=== PATIENT | female | born 1960 | race Caucasian/White ===

== ENCOUNTER 2019-04-15 18:32 | Inpatient (IN) | payer OTHER ==
[~2019-04-15] VITALS: Ht 152.4 cm; Wt 72.6 kg
[2019-04-15 18:41] VITALS: BP 139/76
--- NOTE | 2019-04-15 20:25 | NUR ---
PT WHEELCHAIRED TO BED #11
--- NOTE | 2019-04-15 20:30 | NUR ---
PT CAME TO ER S/P MECHANICAL FALL TODAY. PT WAS DOING LAUNDRY AND FELL ON LEFT KNEE AND LEFT ELBOW. PT DENIES HITTING HEAD. NO LOC. LEFT KNEE IS SWOLLEN WITH MILD ERYTHEMA. PAIN LEVEL 10/10, ACHING. NKA. MED HX: DM, HIGH CHOLESTEROL. SAFETY MEASURES IN PLACE. WAITING FOR ERMD TO EVALUATE PT.
--- NOTE | 2019-04-15 21:17 | NUR ---
XRAY AT BEDSIDE
[2019-04-15] MEDS ORDERED: KETOROLAC 30 MG/ML VIAL IM ONE (21:40)
--- NOTE | 2019-04-15 22:00 | NUR ---
PT RESTING IN BED COMFORTABLY WITH GRANDDAUGHTER AT BEDSIDE
--- NOTE | 2019-04-15 22:30 | NUR ---
PT STATED PAIN LEVEL DECREASED TO PAIN 5/10
[2019-04-15] MEDS ORDERED: ACETAMINOPHEN 325 MG TAB PO PRN (23:20)
[2019-04-15] MEDS ORDERED: ONDANSETRON 4 MG/2 ML VIAL IVP PRN (23:20)
[2019-04-15] MEDS ORDERED: HYDROcodone/APAP 7.5/325 MG 1 TAB PO PRN (23:20)
--- NOTE | 2019-04-15 23:20 | NUR ---
PT RESTING IN BED. VSS. WILL CONTINUE TO MONITOR.
[2019-04-15] MEDS ORDERED: MORPHINE SULFATE 4 MG/ML SYR IVP PRN (23:25)
--- NOTE | 2019-04-16 | NUR ---
RECEIVED FROM ER PER ZULLY AWAKE AND ALERT. NO SOB. DENIES PAIN AT THIS TIME. CALL LIGHT USE EXPLAINED . CARES FOR THE NIGHT DISCUSSED WITH HER AND FAMILY MEMBERS /DAUGHTER WHO SPEAKS YEMENI WELL. DX. OF COMMINUTED PATELLA FRACTURE. IVF SITE TO [facility] #20 INTACT AND WITH GOOD BLOOD RETURN. SKIN INTACT.
[2019-04-16 00:02] LABS: BASOPHILS % (AUTO) 0.3 % (0.0-2.0); EOSINOPHILS # (AUTO) 0.1 K/uL (0-0.4); EOSINOPHILS % (AUTO) 0.4 % (0.0-4.0); HEMATOCRIT 42.9 % (36-48); HEMOGLOBIN 13.9 g/dL (12.0-16.0); LYMPHOCYTES # (AUTO) 2.4 K/uL (2.5-16.5); LYMPHOCYTES % (AUTO) 16.8 % (20.5-51.1); MEAN CORPUSCULAR HEMOGLOBIN 30 pg (27-31); MEAN CORPUSCULAR HGB CONC 32 g/dL (33-37); MEAN CORPUSCULAR VOLUME 92.8 fL (80-94); MONOCYTES # (AUTO) 0.7 K/uL (0.8-1.0); MONOCYTES % (AUTO) 5.3 % (1.7-9.3); NEUTROPHILS # (AUTO) 10.8 K/uL (1.8-7.7); NEUTROPHILS % (AUTO) 77.2 % (42.2-75.2); PLATELET COUNT (AUTO) 275 K/uL (140-450); RED BLOOD CELL COUNT(AUTO) 4.62 MIL/uL (4.20-5.40); RED CELL DISTRIBUTION WIDTH 13.5 % (11.6-13.7)
--- NOTE | 2019-04-16 00:02 | NUR ---
adPatient will be admitted to care of Dr. Uribe. Admited to [facility]. Will go to [id number]. Belongings list completed. Report to LUCY Arthur.
--- NOTE | 2019-04-16 00:02 | NUR ---
Transfer of care and report given to LUCY Arthur
[2019-04-16 00:11] LABS: ALBUMIN 3.7 g/dL (3.4-5.0); ANION GAP 13.7 (8-16); CREATININE 0.5 mg/dL (0.6-1.3); POTASSIUM 3.7 mmol/L (3.5-5.1); TOTAL BILIRUBIN 0.4 mg/dL (0.0-1.0)
[2019-04-16 00:20] LABS: FREE T4 (FREE THYROXINE) 1.13 ng/dL (0.76-1.46); MAGNESIUM 1.8 mg/dL (1.8-2.4); PHOSPHORUS 4.3 mg/dL (2.5-4.9); THYROID STIMULATING HORMONE 1.27 uIU/mL (0.34-3.74)
[2019-04-16] MEDS ORDERED: DEXTROSE 50% 50 ML SYR IVP PRN (00:20)
[2019-04-16] MEDS ORDERED: INSULIN LISPRO SLIDING SCALE 100 UNITS/ML VIAL SUBQ PRN (00:20)
[2019-04-16 00:25] VITALS: BP 154/87
[2019-04-16 00:40] LABS: PROTHROMBIN TIME 9.9 secs (10.8-13.4)
--- NOTE | 2019-04-16 01:30 | NUR ---
PT. FAMILY MEMBERS LEFT FOR HOME AND PT. REQUESTED FOR DOLOR MEDICATION FOR PAIN OF 6. MEDICATED WITH HYDROCODONE ORDERED BY MD. NO FURTHER COMPLAINT.
--- NOTE | 2019-04-16 04:00 | NUR ---
SLEEPING. NO RESTLESSNESS.
[2019-04-16] MEDS: DEXT 5% / NACL 0.9% 1,000 ML IV SCH ×2 (04:45→14:09)
[2019-04-16] MEDS: BLOOD GLUCOSE MONITORING 1 DEV DEV FS SCH ×4 (05:19→17:54)
[2019-04-16 07:08] LABS: ANION GAP 13.1 (8-16); CARBON DIOXIDE 26.7 mmol/L (21-32); CREATININE 0.7 mg/dL (0.6-1.3); POTASSIUM 3.8 mmol/L (3.5-5.1)
[2019-04-16 07:17] LABS: CHOL/HDL RATIO 2.5 (1-4.5)
--- NOTE | 2019-04-16 07:18 | NUR ---
SLEPT WELL THIS SHIFT. ABLE TO USE CALL LIGHT FOR HELP. ENDORSED TO THE NEXT RN FOR CONTINUITY OF CARE AWAKE AND ALERT. VERBALIZING WELL. PT. REFUSED XRAY TO LEFT ELBOW STATING "NO DOLOR" PER SAVANA OF XRAY DEPT. ENDORSED TO AM RN TO FOLLOW UP ON THIS.
--- NOTE | 2019-04-16 07:20 | NUR ---
RECEIVED REPORT FROM PROTOTYPER NURSE. PT AAOX4, PT IS RESTING IN BED, NO C/O PAIN AT THIS TIME. IV ON RT AC 20 GA RUNNING IVF PER ORDER. RESPIRATIONS EVEN AND UNLABORED ON RA. ABD SOFT, ACTIVE BS. PT DX LT COMMINUTED PATELLA FRACTURE, NOTED IMMOBILIZER IN PLACE. PER PROTOTYPER NURSE, PT REFUSED CXR TO LT ELBOW, WILL REPORT TO PHYSICIAN. PT IS ON FALL RISK PRECAUTIONS, SAFETY MEASURES IN PLACE, CALL LIGHT WITHIN REACH. REVIEWED POC, PT VERBALIZED UNDERSTANDING.
[2019-04-16 07:31] LABS: BASOPHILS % (AUTO) 0.3 % (0.0-2.0); EOSINOPHILS # (AUTO) 0.1 K/uL (0-0.4); EOSINOPHILS % (AUTO) 0.8 % (0.0-4.0); HEMATOCRIT 38.3 % (36-48); HEMOGLOBIN 12.4 g/dL (12.0-16.0); LYMPHOCYTES # (AUTO) 2.6 K/uL (2.5-16.5); LYMPHOCYTES % (AUTO) 18.4 % (20.5-51.1); MEAN CORPUSCULAR HEMOGLOBIN 30 pg (27-31); MEAN CORPUSCULAR HGB CONC 33 g/dL (33-37); MEAN CORPUSCULAR VOLUME 93.7 fL (80-94); MONOCYTES % (AUTO) 6.9 % (1.7-9.3); NEUTROPHILS # (AUTO) 10.3 K/uL (1.8-7.7); NEUTROPHILS % (AUTO) 73.6 % (42.2-75.2); PLATELET COUNT (AUTO) 256 K/uL (140-450); RED BLOOD CELL COUNT(AUTO) 4.08 MIL/uL (4.20-5.40); RED CELL DISTRIBUTION WIDTH 13.7 % (11.6-13.7)
[2019-04-16 08:00] VITALS: BP 134/69
--- NOTE | 2019-04-16 08:29 | NUR ---
PATIENT HAS BEEN SCREENED AND CATEGORIZED MODERATE NUTRITION RISK. PATIENT WILL BE SEEN WITHIN 3-5 DAYS OF ADMISSION. 04/18/19 04/20/[address]
[2019-04-16] MEDS ORDERED: DOCUSATE SODIUM 100 MG GELCAP PO SCH (09:00)
--- NOTE | 2019-04-16 09:43 | NUR ---
PT GIVEN COLACE PER ORDER. PT HAS NO C/O PAIN AT THIS TIME.
--- NOTE | 2019-04-16 11:06 | NUR ---
CONTACTED PATIENT'S PCP NIYA GUDINO OFFICE AT [phone] REGARDING POST DISCHARGE APPOINTMENT. SCHEDULED FOR 04/22/19 AT 1130 AM, OFFICE ADDRESS IS [address] [place] [address] [address], [place] [address]. COPY OF APPOINMENT PROVIDED TO THE PATIENT.
--- NOTE | 2019-04-16 11:50 | NUR ---
PT'S FAMILY MEMBERS AT BEDSIDE. PT HAS NO SIGNS OF DISTRESS AT THIS TIME.
--- NOTE | 2019-04-16 15:08 | NUR ---
PT ON LEFT LATERAL SIDE, SLEEPING IN BED, RESPIRATIONS EVEN AND UNLABORED ON RA.
[2019-04-16] MEDS ORDERED: HYDR-5122 PO (15:56)
[2019-04-16 16:00] VITALS: BP 135/62
--- NOTE | 2019-04-16 16:00 | NUR ---
PER DR. SHEARER, THEY WERE ABLE TO SEND IMAGES TO DR. ISAAC BUT DR ISAAC [place] AND [place] UNABLE TO SEE PT, DR. ISAAC'S RECOMMENDATION IS TO PLACE KNEE IMMOBILIZER ON THE AFFECTED LEG, PHYSICAL THERAPY, NO SURGERY AT THIS TIME AND TO FOLLOW UP WITH ORTHO OUT PT. DR. BECKWITH NOTIFIED.
--- NOTE | 2019-04-16 16:00 | NUR ---
PT AAOX4. VSS STABLE. NO C/O PAIN AT THIS TIME.
--- NOTE | 2019-04-16 16:45 | NUR ---
CONTACTED [facility] AT [phone] REGARDING HOME HEALTH ORDER FOR PT AND HOME SAFETY, ABLE TO SPEAK TO ELVIS. SHE TRANSFERRED ME TO IN PATIENT AUTH AND SPOKE TO SANDY, SHE STATED THEY ARE NOT DELEGATED AND TO CALL [facility]. CONTACTED PATRICIA OF [facility] AT [phone], HE STATED [facility] IS THE ONE DELEGATED. PROVIDED HIM OF THE NAME OF THE PERSON THAT I SPOKE TO AT [facility]. ANH STATED HE WILL FOLLOW UP WITH THEM. CALLED [facility] AGAIN, PER VOICE MESSAGE THEY ARE CLOSED AT THIS TIME. WILL FOLLOW UP. PRIMARY RN JULIANNA MADE AWARE.
--- NOTE | 2019-04-16 19:25 | NUR ---
PT HAS BEEN DISCHARGED. ALL PAPERWORK SIGNED, ALL QUESTIONS ANSWERED. ALL BELONGINGS AND PRESCRIPTIONS IN PT POSSESSION. IV DISCONTINUED WITH CANNULA INTACT. WRISTBANDS REMOVED. PT TRANSFERRED OUT OF UNIT VIA PERSONAL WHEELCHAIR. FAMILY AT SIDE. PT IN STABLE CONDITION.
--- NOTE | 2019-04-17 08:32 | NUR ---
CONTACTED [facility], ABLE TO SPEAK TO ELVIS. I INFORMED HER THAT PER PATRICIA OF [facility] THEY ARE THE ONE DELEGATED FOR HOME HEALTH AUTHORIZATION. SHE STATED SHE WILL FAX ME OVER FORMS TO FILLED OUT. PER ELVIS FOR ROUTINE NEEDS PROCESSING WILL TAKE 5 BUSINESS DAYS AND FOR URGENT 72 BUSINESS HOURS. I ALSO INFORMED HER THAT THE PATIENT WAS DC YESTERDAY. SHE ALSO PROVIDED ME OF THE FAX NUMBER TO SEND ORDER. CONTACTED [facility] REGARDING THIS. HE TOOK THE NAME OF THE PERSON I SPOKE WITH AND STATED THAT HE WILL FOLLOW UP WITH THEM. ORDER FAXED TO THE PROVIDED NUMBER, STATING URGENT, PATIENT WAS DC'D YESTERDAY. WILL FOLLOW UP.
--- NOTE | 2019-04-17 13:55 | NUR ---
CONTACTED [facility] AGAIN, SPOKE TO ELVIS. SHE STATED TO RE FAX CLINICALS AND REQUEST. CONFIRMED FAX NUMBER [phone]. CLINICALS AND ORDER SENT
--- NOTE | 2019-04-17 14:44 | NUR ---
CONTACTED PATRICIA OF [facility] AND UPDATED HIM ON THE HOME HEALTH STATUS. HE STATED HE WILL CONTACT [facility] AND WILL UPDATE ME
--- NOTE | 2019-04-17 15:55 | NUR ---
RECEIVED A CALL FROM MAGNOLIA DIAZ OF [facility], HE SAID JUST GO AHEAD AND FAX CLINICALS OVER TO HOME HEALTH. I ASKED HIM IF THEY ARE CONTRACTED WITH [facility], HE STATED THEY ARE AND HAS A GOOD RELATIONSHIP WITH THEM. HE ALSO STATED THAT [facility] CAN CALL HIM DIRECTLY FOR AUTHORIZATION. CONTACTED [facility], SHE SAID TO FAX REFERRAL TO [phone]. SHE STATED SHE WILL CONTACT MAGNOLIA DIAZ OF [facility]. SHE ALSO STATED THAT SHE WILL CONTACT THE FAMILY WELL AND WILL UPDATE ME. CLINICALS FAXED TO THE PROVIDED NUMBER. Addendum: 04/17/19 at 1612 by Nati Bosch CM CONTACTED PATRICIA [facility], NO ANSWER. LEFT MESSAGE Addendum: 04/17/19 at 1614 by Nati Bosch CM CONTACT NUMBER FOR MAGNOLIA DIAZ OF [facility] IS [phone]
--- NOTE | 2019-04-17 16:06 | NUR ---
RECEIVED A CALL FROM JYOTI TECH ED TEACHER OF [facility], INFORMED HER THAT MAGNOLIA DIAZ CONTACTED ME ALREADY AND I AM IN CONTACT WITH [facility].
--- NOTE | 2019-04-18 08:20 | NUR ---
RECEIVED A VOICE MESSAGE FROM EVERETT OF [facility] STATING THAT SHE IS STILL WAITING FOR AUTHORIZATION FROM [facility]. CONTACTED [facility] AT [phone] TO FOLLOW UP HERMAN, ABLE TO SPEAK TO TIFFANI (AFTER HOURS REP). HE STATED OFFICE IS NOT OPEN UNTIL 829. WILL FOLLOW UP.
--- NOTE | 2019-04-18 09:20 | NUR ---
RECEIVED A CALL FROM [facility], SHE STATED SHE RECEIVED THE AUTH FROM [facility] AND HER NURSE WILL BE SEEING THE PATIENT TODAY.
== END 2019-04-16 19:30 | disposition home or self-care (01) | DRG 342 ==
LOC: MED 18:32 → MTU 23:17 → MMU 23:50
PROVIDERS: ADMIT Internal Medicine; ATTEND Internal Medicine
PROC: 2W3RX1Z Immobilization of Left Lower Leg using Splint (ICD-10-PCS; principal; 2019-04-15)
DX: S82.042A Displaced comminuted fracture of left patella, initial encounter for closed fracture (principal); E11.319 Type 2 diabetes mellitus with unspecified diabetic retinopathy without macular edema; E11.65 Type 2 diabetes mellitus with hyperglycemia; S50.02XA Contusion of left elbow, initial encounter; E78.5 Hyperlipidemia, unspecified; E11.36 Type 2 diabetes mellitus with diabetic cataract; W01.0XXA Fall on same level from slipping, tripping and stumbling without subsequent striking against object, initial encounter; Y93.89 Activity, other specified; Y92.89 Other specified places as the place of occurrence of the external cause; Z90.710 Acquired absence of both cervix and uterus; Z90.49 Acquired absence of other specified parts of digestive tract; Y99.8 Other external cause status
CPT/HCPCS: 36415; 71045; 73080; 73562; 80048; 80053; 82150; 82948; 83036; 83690; 83735; 83880; 84100; 84439; 84443; 84484; 85025; 85610; 85730; 87081; 93005; 96372; 97112; 97163-GP; 99285; J1885; J7042; Q0092

== ENCOUNTER 2021-11-11 12:12 | Emergency (ER) | payer OTHER ==
[~2021-11-11] VITALS: Ht 152.4 cm; Wt 73.5 kg
[~2021-11-11 12:12] MED LIST: HYDR-5122 PO
[2021-11-11 12:22] VITALS: BP 173/78
--- NOTE | 2021-11-11 12:40 | NUR ---
61/F C/O L SIDED RIB PAIN, STATES SHE TRIPPED AND FELL ON MONDAY AND FELL ONTO HER LEFT SIDE. STATES PAIN WORSENS UPON INSPIRATION AND EXPIRATION, REPORTS TAKING TYLENOL WITH MILD RELIEF. PT DENIES HITTING HEAD OR ANY LOC. NO BRUISING NOTED ON SIDE/RIB PAIN AT THIS TIME. PT DENIES ANY SOB/TROUBLE BREATHING MEDHX: DM, CHOLESTEROL ALLERGIES: NKA
--- NOTE | 2021-11-11 12:40 | NUR ---
PATIENT FAMILY CONTACT INFORMATION HUBER (DAUGHTER) [phone] SHELBIE (GRAND-DAUGHTER) [phone] ZIYAD (GRAND-DAUGHTER) [phone]
--- NOTE | 2021-11-11 13:05 | NUR ---
PT TAKEN TO XRAY VIA W/C
--- NOTE | 2021-11-11 13:26 | NUR ---
JERE GUALLPA BEDSIDE EVALUATING PT
[2021-11-11] MEDS ORDERED: KETOROLAC 30 MG/ML VIAL IM ONE (13:30)
[2021-11-11] MEDS ORDERED: NAPR-54 PO ×2 (14:26→15:11)
[2021-11-11] MEDS ORDERED: ACET-8386 PO ×2 (14:26→15:11)
[2021-11-11 14:34] VITALS: BP 154/77
== END 2021-11-11 14:34 | disposition home or self-care (01) ==
LOC: MED 12:12
DX: S20.20XA Contusion of thorax, unspecified, initial encounter (principal); E11.9 Type 2 diabetes mellitus without complications; E78.5 Hyperlipidemia, unspecified; Z79.899 Other long term (current) drug therapy; W01.0XXA Fall on same level from slipping, tripping and stumbling without subsequent striking against object, initial encounter; Y93.89 Activity, other specified; Y92.89 Other specified places as the place of occurrence of the external cause; Y99.8 Other external cause status
CPT/HCPCS: 71101; 96372; 99283; J1885

== ENCOUNTER 2022-08-28 13:38 | Emergency (ER) | payer OTHER ==
[~2022-08-28] VITALS: Ht 152.4 cm; Wt 68.0 kg
[~2022-08-28 13:38] MED LIST changes: +ACET-8905 PO; +NAPR-54 PO
[2022-08-28 14:08] VITALS: BP 159/65
--- NOTE | 2022-08-28 14:20 | NUR ---
BIB GRANDDAUGHTER C/O 01/30 MARIN KNEES, ELBOW PAIN S/P FALL X TODAY. DENIES LOC. PMH: DM, HLD
[2022-08-28] MEDS ORDERED: IBUPROFEN 600 MG TAB PO ONE (15:25)
[2022-08-28] MEDS ORDERED: IBUP-2213 PO (16:26)
[2022-08-28 16:33] VITALS: BP 159/65
--- NOTE | 2022-08-28 16:33 | NUR ---
Patient discharged with v/s stable. Written and verbal after care instructions given and explained. Patient alert, oriented and verbalized understanding of instructions. Wheel Chair Assisted with daughter to car. All questions addressed prior to discharge. ID band removed. Patient advised to follow up with PMD. Rx of ibuprofen (sent) given. Patient educated on indication of medication including possible reaction and side effects. Opportunity to ask questions provided and answered.
== END 2022-08-28 16:33 | disposition home or self-care (01) ==
LOC: MED 13:38
DX: S80.02XA Contusion of left knee, initial encounter (principal); S80.01XA Contusion of right knee, initial encounter; S50.02XA Contusion of left elbow, initial encounter; I25.10 Atherosclerotic heart disease of native coronary artery without angina pectoris; E11.9 Type 2 diabetes mellitus without complications; Z79.4 Long term (current) use of insulin; Z79.899 Other long term (current) drug therapy; W18.30XA Fall on same level, unspecified, initial encounter; Y93.89 Activity, other specified; Y92.89 Other specified places as the place of occurrence of the external cause; Y99.8 Other external cause status
CPT/HCPCS: 73080; 73562; 99284